=== PATIENT | male | born 2000 | race Caucasian/White ===

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

== ENCOUNTER 2022-12-15 22:46 | Emergency (ER) | payer OTHER, SELFPAY ==
[2022-12-15 22:47] VITALS: BP 155/91; PULSE 95; RESP 18; TEMP 37.1; O2SAT 98; BMI 29.6
[2022-12-15 22:59] LABS: Bacteria 0 SEEN /hpf (None Seen); Mucous, Urine 0 SEEN /hpf (<or=2+); Red Blood Cells-Urine 0 SEEN /hpf (0-5); Squamous Epithelial Cells - UA 0 SEEN /hpf (0-5); White Blood Cells 0 SEEN /hpf (0-5)
[2022-12-15 23:10] LABS: Color, Urine Yellow (Yellow); Glucose, Dipstick Normal (Normal); Ketone-Dipstick Negative (Negative); Leukocyte Esterase-Dipstick Negative /ul (Negative); Nitrite-Dipstick Negative (Negative); Occult Blood-Urine Negative /ul (Negative); Protein-Dipstick Negative (Negative); Urine Bilirubin Dipstick Negative (Negative); Urine Clarity Clear (Clear); Urine Urobilinogen Normal (Normal)
--- NOTE | 2022-12-15 23:46 | US_ITS ---
INDICATION: pain-RT TESTICLE EXAMINATION: Ultrasound US Scrotum (Contents) TECHNIQUE: Realtime ultrasound of the testicles was performed with grayscale, Color Doppler and spectral Doppler analysis. COMPARISON: Prior study dated: 06/19/2019. FINDINGS: RIGHT: TESTIS: Mildly enlarged. Right testicle measures 5.2 x 3.3 x 2.6 cm in diameter. The parenchyma of the right testicle is mildly inhomogeneous, without focal mass or wedge-shaped infarction. COLOR DOPPLER: Asymmetric increased Doppler flow throughout the right testicle as compared to the left. EPIDIDYMIS: Tiny incidental cyst. [Normal color Doppler flow pattern in the epididymis. HYDROCELE: Small. VARICOCELE: None. LEFT: TESTIS: Normal in size, measuring. 4.3 x 2.6 x 2.1 cm in diameter. Normal in size and echotexture, without focal lesion. COLOR DOPPLER: Normal Doppler flow within the left testicle. EPIDIDYMIS: Normal in size and echotexture, without focal lesion. [Normal color Doppler flow pattern in the epididymis. HYDROCELE: None. VARICOCELE: Present. OTHER: No scrotal wall thickening. US/Testicular with Arterial Flow IMPRESSION: Mildly enlarged and inhomogeneous right testicle which shows increased Doppler flow; the findings could be related to a right-sided orchitis, versus intermittent testicular torsion which has spontaneously reduced. No evidence for testicular torsion at this time, as Doppler flow is present within both testicles. Electronically Signed: Marlo Land MD at 0:22 EDT ,
--- NOTE | 2022-12-16 00:50 | EX.ED.GUMALE ---
HPI History of Present Illness Chief Complaint: Male Pain/Injury Informant: patient Narrative Narrative: 3 days gradual onset right testicular pain, no sudden onset severe pains. No urinary symptoms, no systemic symptoms. Pain radiates up into the lower abdomen a little. No injury. No history of GC or chlamydia, his significant other does not either, he has not been exposed that he knows of. PFSH PFSH no medical history Home Medications doxycycline monohydrate 100 mg capsule 100 mg PO BID #20 CAPSULES 12/16/22 [Rx Last Taken Unknown] Allergy/AdvReac Type Severity Reaction Status Date / Time No Known Allergies Allergy Verified 12/15/22 22:50 ROS ROS ED Constitutional Constitutional ED: Denies chills or fever(s) Gastrointestinal Gastrointestinal: Reports abdominal pain; Denies diarrhea, nausea or vomiting Genitourinary Genitourinary ED: Reports as per HPI and scrotal pain; Denies dysuria, hematuria or urinary frequency Musculoskeletal Musculoskeletal: Denies back pain EXAM Physical Exam Const Vital Signs: 12/15/22 22:47 Temperature 98.7 F Temperature Source Temporal Pulse Rate 95 Respiratory Rate 18 Blood Pressure 155/91 H Blood Pressure Mean 112 Pulse Ox 98 Oxygen Delivery Method Room Air Positive well nourished and well developed General Appearance ED: well developed and NAD Cardio Rate: Negative for tachycardic GI non-tender and non-distended Inspection: Negative for abdominal distention Auscultation: normoactive bowel sounds Palpation: soft Narrative: Mild tenderness throughout right testicle. No objective hemiscrotal asymmetry/edema. Not able to isolate to the epididymis. No blue dot sign. No erythema. Normal penis, no inguinal lymphadenopathy or rash/lesion. Left hemiscrotum nontender. No palpable abnormal mass. Cremasteric intact. Back/Spine no CVA tenderness MDM MDM MDM Narrative Medical decision making narrative: Urinalysis negative, ultrasound obtained, I reviewed the images and report I agree with it, basically consistent with orchitis. I think it is less likely clinically indicative of intermittent torsion given the history which is much more consistent with orchitis. Placed on doxycycline and sent GC and Chlamydia those are pending, if he does not have resolution of symptoms he should follow-up with urology he is comfortable with that plan and taking ibuprofen as needed for the pain which was given here. Lab Data Attestation: I reviewed the patient's lab results. Labs: Laboratory Results - last 24 hr 12/15/22 21:55 Urine Color Yellow Urine Clarity Clear Urine pH 7.0 Ur Specific [place] 1.010 Urine Protein Negative Urine Glucose (UA) Normal Urine Ketones Negative Urine Occult Blood Negative Urine Nitrite Negative Urine Bilirubin Negative Urine Urobilinogen Normal Ur Leukocyte Esterase Negative Urine RBC 0 SEEN Urine WBC 0 SEEN Ur Squamous Epith Cells 0 SEEN Urine Bacteria 0 SEEN Urine Mucus 0 SEEN Radiography Diagnostic Testing: Clinical Impression(s) from Imaging Studies Testicular Ultrasound 12/15/22 23:46 IMPRESSION: Mildly enlarged and inhomogeneous right testicle which shows increased Doppler flow; the findings could be related to a right-sided orchitis, versus intermittent testicular torsion which has spontaneously reduced. No evidence for testicular torsion at this time, as Doppler flow is present within both testicles. Electronically Signed: Marlo Land MD at 0:22 EDT , Discharge Plan Triage Chief Complaint: Male Pain/Injury ED Provider: Hernán Whaltey Dx/Rx/DC Orders Clinical Impression: Orchitis, right Instructions: ED Orchitis Prescriptions: New doxycycline monohydrate 100 mg capsule 100 mg PO BID Qty: 20 0RF Primary Care Provider: El Ch Referrals: El Ch MD [Primary Care Provider] - Mayito Covington MD [Med Staff - Active Staff] - 1 Week if not improving Disposition Disposition: Home, Self Care
[2022-12-16] MEDS: Ibuprofen 600 MG Tablet PO (01:07)
[2022-12-16] MEDS: Doxycycline 100 MG CAPSULE PO (01:08)
[2022-12-16 01:11] VITALS: PULSE 80; RESP 16
== END 2022-12-16 01:12 | disposition home or self-care (01) ==
PROVIDERS: Emergency Provider Emergency Medicine; PCP Family Medicine; Visit Provider Emergency Medicine
DX: N45.2 Orchitis (principal); R10.30 Lower abdominal pain, unspecified; N50.811 Right testicular pain
CPT/HCPCS: 76870; 81001; 87491; 87591; 93976; 99283

== ENCOUNTER → 2023-06-16 | Outpatient (CLI) | payer BC, SELFPAY ==
--- OUTSIDE RECORDS SUMMARY | 2023-06-16 06:55 | XMS RPT_ITS | CCD ---
Author Name Unknown Address [address] [place] [address] [address] [place] [address] Organization [facility] Care Team Providers Care Manager Gas Name Role Phone ZULLY STERN Unavaila ble REFERRED, SELF Unavailable Unavailable ZULLY STERN Unavailable Unavaila ble Unavailable Primary Care Provider Unavailabl e Medications Completed/Discontinued Medications Medication Drug Class(es) Dates Sig (Normalized) Sig (Original) brompheniramine maleate 0.4 mg/ml / dextromethorphan hydrobromide 2 mg/ml / pseudoephedrine hydrochloride 6 mg/ml oral solution (1 source) alpha-Adrenergic Agonist, Uncompetitive H-pknhjr-W-aspartat e Receptor Antagonist, Sigma-1 Agonist Start: 04-05-2022 take 10 mL by mouth four times daily as needed Brompheniramine -Pseudoeph-DM (BROMFED DM) 2-30-10 mg/5 mL syrup Indications: Viral URI with cough , Acute otalgia, bilateral Take 10 mL by mouth four times daily as needed. 118 mL 0 04/05/2022 Active Problems Problem Classification Problem Date Documented Da te Episodic/Chronic Other ear and sense organ disorders (1 source) Pain of ear structure; Translations: [Otalgia, bilateral] Episodic Other upper respiratory infections (1 source) Viral upper respiratory tract infection; Translations: [Acute upper respiratory infection, unspecified] Episodic Results Test Name Value Interpretation Reference Range Facil ity Vital Signs Date Time Vital Sign Value Performing Clinician Siddharthi litdrake 04-05-2022 15:26-0500 Body temperature 98.2 [degF] Christie Aguayo APRN.[employer] Work Phone: [facility] 04-05-2022 15:26-0500 Body weight 102.97 kg Christie Aguayo 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[employer] Work Phone: [facility] 04-05-2022 15:26-0500 Diastolic blood pressure 68 mm[Hg] Christie Aguayo APRN.[employer] Work Phone: [facility] 04-05-2022 15:26-0500 Heart rate 73 /min Christie Aguayo APRN.[employer] Work Phone: [facility] 04-05-2022 15:26-0500 SaO2% (BldA) [Mass fraction] 97 % Christie Aguayo APRN.[employer] Work Phone: [facility] 04-05-2022 15:26-0500 Systolic blood pressure 131 mm[Hg] Christie Aguayo APRN.[employer] Work Phone: [facility] Encounters Encounter Date Encounter Type Care Provider Facility Start: 04-05-2022 End: 04-05-2022 ambulatory Facility:[facility] Start: 04-05-2022 End: 04-05-2022 Patient encounter procedure Christie Aguayo APRN.JOSE ELIAS Work Phone: [facility] Plan of Treatment Date Care Activity Detail Author Start: 04-10-2022 DEPRESSION ASSESSMENT DEPRESSION ASS ESSMENT [facility] Start: 12-09-2021 Influenza vaccination INFLUENZA (#1) [facility] Start: 02-22-2021 COVID-19 VACCINE (3 - Booster for Pfizer series) COVID-19 VACCINE (3 - Booster for Pfizer series) [facility] Start: 01-10-2019 Urine microalbumin profile DTAP,TDAP ,TD (1 - Tdap) [facility] Start: 01-10-2018 HEPATITIS C SCREENING HEPATITIS C SC RUPERT [facility] Start: 01-10-2018 HIV SCREENING HIV SCREENING [facility] Start: 01-10-2014 PEDS TO ADULT TRANSI TION ANNUAL ASSESSMENT PEDS TO ADULT TRANSITION ANNUAL ASSESSMENT [facility] Start: 2012 PEDS TO ADULT TRANSI TION INITIAL DISCUSSION PEDS TO ADULT TRANSITION INITIAL DISCUSSION [facility] Start: 01-10-2011 HPV VACCINE (1 - Mal e 2-dose series) HPV VACCINE (1 - Male 2-dose series) [facility] Start: 01-10-2010 MENINGOCOCCAL B: 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 based on risk (1 of 2 - Risk Bexsero 2-dose series) MENINGOCOCCAL B: Consider based on risk (1 of 2 - Risk Bexsero 2-dose series) [facility] Start: 2000 HEPATITIS B (1 of 3 - 3-dose series) HEPATITIS B (1 of 3 - 3-dose series) [facility] Payers Date Payer Category Payer Unknown [id number] 2000 Unknown MMO MMO [employer] [id number] 2000-Present [phone] [address] [place] [address] PPO [id number] Unknown [id number] Social History Date Type Detail Facility Tobacco smoking stat [facility] Tobacco smoking consumption unknown [facility] Start: 2000 Sex Assigned At Not on file [facility] Progress note 04-05-2022 Note Date & Type Note Facility 04-05-2022 Note HNO ID: [id number] Author: Christie Aguayo APRN.[employer] Service: ? Author Type: Nurse Practitioner Type: Progress Notes Filed: 04/05/2022 3:46 PM Note Text: This note was created using [employer]zwerker[employer]. Subjective Ronni Contreras is a 22 year old male. HPI by patient: Ronni Contreras is a 22 year old presenting to the office with the complaint of viral symptoms. CC: (Sxs Monday runny nose cough, a little bit of a sore throat and ear issues.) Started approximately 2-3 days prior. Associated symptoms include bilateral ear pain, sore throat, cough, and congestion. Denies fevers, chills, body aches, gi symptoms, headache, shortness of breath. Vaccinated for influenza: none. Covid Immunization Dates Overdue - COVID-19 VACCINE (3 - Booster for Pfizer series) Overdue since 02/22/2021 12/28/2020 Outside Immunization: COVID-19, mRNA, LNP-S, PF, 30 mcg/0.3 mL dose 12/07/2020 Outside Immunization: COVID-19, mRNA, LNP-S, PF, 30 mcg/0.3 mL dose Flu/RSV contacts: none. Strep contacts: none. Sick contacts: yes. Covid + contacts: none. Travel in the last 14 days: none. Smoking history/second hand smoke: none. OTC dayquil, nyquil. No antibiotic use in the last 60 days. ALLERGIES No Known Allergies No family history on file. Active Ambulatory Problems No Active Ambulatory Problems Resolved Ambulatory Problems No Resolved Ambulatory Problems No Additional Past Medical History Review of Systems Constitutional: Negative for chills, fatigue and fever. HENT: Positive for congestion and ear pain. Negative for sore throat. Eyes: Negative. Respiratory: Positive for cough. Negative for shortness of breath. Cardiovascular: Negative. Gastrointestinal: Negative. Endocrine: Negative. Genitourinary: Negative. Musculoskeletal: Negative. Skin: Negative. Neurological: Positive for headaches (from cough). Objective BP 131/68 Pulse 73 Temp 36.8 ?C (98.2 ?F) Wt 103 kg (227 lb) SpO2 97% Physical Exam Vitals reviewed. Constitutional: General: He is awake. He is not in acute distress. Appearance: He is not ill-appearing, toxic-appearing or diaphoretic. HENT: Head: Normocephalic and atraumatic. Right Ear: Tympanic membrane, ear canal and external ear normal. Left Ear: Tympanic membrane, ear canal and external ear normal. Nose: Nose normal. Right Sinus: No maxillary sinus tenderness or frontal sinus tenderness. Left Sinus: No maxillary sinus tenderness or frontal sinus tenderness. Mouth/Throat: Mouth: Mucous membranes are moist. Pharynx: Oropharynx is clear. No pharyngeal swelling, oropharyngeal exudate or posterior oropharyngeal erythema. Cardiovascular: Rate and Rhythm: Normal rate and regular rhythm. Pulmonary: Effort: Pulmonary effort is normal. Breath sounds: Normal breath sounds. Lymphadenopathy: Head: Right side of head: No submandibular or tonsillar adenopathy. Left side of head: No submandibular or tonsillar adenopathy. Cervical: No cervical adenopathy. Neurological: Mental Status: He is alert. Psychiatric: Behavior: Behavior is cooperative. Centor Score for strep testing: Age: 3-13- +1 15-44- 0 >45- -1 Exudate/swelling tonsils: No-0, yes-+1 Tender/swollen anterior cervical lymph: No-0, yes- +1 Temp > 100.4F, 38C: No-0, yes-+1 Cough: yes-0, no-+1 Score: Greater than or equal to 4- test/treat empirically 3- test/treat empirically 2- test 1- No test 0- No test Assessment and Plan (J06.9) Viral URI with cough (primary encounter diagnosis) Plan: Opozzcjtacpwspy-Bzgeswxvr-EV (BROMFED DM) 2-30-10 mg/5 mL syrup (H92.03) Acute otalgia, bilateral Plan: Kpatmrlnseojvgp-Povkmkncg-OG (BROMFED DM) 2-30-10 mg/5 mL syrup, predniSONE (DELTASONE) 20 mg tablet Education on viral vs bacterial infections. Most viral infections will last 10 days, sometimes 14. It is possible to have back to back viral infections. An antibiotic will not treat a virus. Declines viral testing. Viral symptoms for about 2-3 days, recommending supportive care: -Prednisone with food to help with inflammation and eustachian tube issues. -Drink lots of fluids and get plenty of rest. -Vaporizers, cool mist humidifiers, warm showers, and warm fluids help open respiratory and sinus passages. Clean humidifiers daily. -OTC tylenol as directed on the bottle. -Saline nasal spray as needed. Flonase twice daily can help reduce inflammation through the sinus cavities. -Bromfed for cough/congestion. -Cough/deep breathing education, promote clearing of the airways and good lung expansion. -Make follow up with primary care for monitoring and resolution in symptoms. -Signs that warrant an ER evaluation: Sudden change/worsening in condition, lethargy, signs of dehydration, fever greater than 102 F that is not responding to Tylenol or ibuprofen (Motrin, Advil), drooling, difficulty swallowing, difficulty breathing, shortness of breath, chest pain, evide (more content not included)... [facility] History of Present illness Narrative 04-05-2022 Christie Aguayo APRN.[employer] - 04/05/2022 3:29 PM EST Note Date & Type Note Facility 04-05-2022 History of Presen t illness Narrative This note was created using NoteWriter. Subjective Ronni Contreras is a 22 year old male. HPI by patient: Ronni Contreras is a 22 year old presenting to the office with the complaint of viral symptoms. CC: (Sxs Monday runny nose cough, a little bit of a sore throat and ear issues.) Started approximately 2-3 days prior. Associated symptoms include bilateral ear pain, sore throat, cough, and congestion. Denies fevers, chills, body aches, gi symptoms, headache, shortness of breath. Vaccinated for influenza: none. Covid Immunization Dates Overdue - COVID-19 VACCINE (3 - Booster for Pfizer series) Overdue since 02/22/2021 12/28/2020 Outside Immunization: COVID-19, mRNA, LNP-S, PF, 30 mcg/0.3 mL dose 12/07/2020 Outside Immunization: COVID-19, mRNA, LNP-S, PF, 30 mcg/0.3 mL dose Flu/RSV contacts: none. Strep contacts: none. Sick contacts: yes. Covid + contacts: none. Travel in the last 14 days: none. Smoking history/second hand smoke: none. OTC dayquil, nyquil. No antibiotic use in the last 60 days. ALLERGIES No Known Allergies No family history on file. Active Ambulatory Problems No Active Ambulatory Problems Resolved Ambulatory Problems No Resolved Ambulatory Problems No Additional Past Medical History Review of Systems Constitutional: Negative for chills, fatigue and fever. HENT: Positive for congestion and ear pain. Negative for sore throat. Eyes: Negative. Respiratory: Positive for cough. Negative for shortness of breath. Cardiovascular: Negative. Gastrointestinal: Negative. Endocrine: Negative. Genitourinary: Negative. Musculoskeletal: Negative. Skin: Negative. Neurological: Positive for headaches (from cough). Objective BP 131/68 Pulse 73 Temp 36.8 C (98.2 F) Wt 103 kg (227 lb) SpO2 97% Physical Exam Vitals reviewed. Constitutional: General: He is awake. He is not in acute distress. Appearance: He is not ill-appearing, toxic-appearing or diaphoretic. HENT: Head: Normocephalic and atraumatic. Right Ear: Tympanic membrane, ear canal and external ear normal. Left Ear: Tympanic membrane, ear canal and external ear normal. Nose: Nose normal. Right Sinus: No maxillary sinus tenderness or frontal sinus tenderness. Left Sinus: No maxillary sinus tenderness or frontal sinus tenderness. Mouth/Throat: Mouth: Mucous membranes are moist. Pharynx: Oropharynx is clear. No pharyngeal swelling, oropharyngeal exudate or posterior oropharyngeal erythema. Cardiovascular: Rate and Rhythm: Normal rate and regular rhythm. Pulmonary: Effort: Pulmonary effort is normal. Breath sounds: Normal breath sounds. Lymphadenopathy: Head: Right side of head: No submandibular or tonsillar adenopathy. Left side of head: No submandibular or tonsillar adenopathy. Cervical: No cervical adenopathy. Neurological: Mental Status: He is alert. Psychiatric: Behavior: Behavior is cooperative. Centor Score for strep testing: Age: 3-13- +1 15-44- 0 >45- -1 Exudate/swelling tonsils: No-0, yes-+1 Tender/swollen anterior cervical lymph: No-0, yes- +1 Temp > 100.4F, 38C: No-0, yes-+1 Cough: yes-0, no-+1 Score: Greater than or equal to 4- test/treat empirically 3- test/treat empirically 2- test 1- No test 0- No test Assessment and Plan (J06.9) Viral URI with cough (primary encounter diagnosis) Plan: Rwdwhjggxxagrcs-Xvolalaxo-ZZ (BROMFED DM) 2-30-10 mg/5 mL syrup (H92.03) Acute otalgia, bilateral Plan: Wdzkmcgepqgmrgy-Acvdjyvim-AD (BROMFED DM) 2-30-10 mg/5 mL syrup, predniSONE (DELTASONE) 20 mg tablet Education on viral vs bacterial infections. Most viral infections will last 10 days, sometimes 14. It is possible to have back to back viral infections. An antibiotic will not treat a virus. Declines viral testing. Viral symptoms for about 2-3 days, recommending supportive care: -Prednisone with food to help with inflammation and eustachian tube issues. -Drink lots of fluids and get plenty of rest. -Vaporizers, cool mist humidifiers, warm showers, and warm fluids help open respiratory and sinus passages. Clean humidifiers daily. -OTC tylenol as directed on the bottle. -Saline nasal spray as needed. Flonase twice daily can help reduce inflammation through the sinus cavities. -Bromfed for cough/congestion. -Cough/deep breathing education, promote clearing of the airways and good lung expansion. -Make follow up with primary care for monitoring and resolution in symptoms. -Signs that warrant an ER evaluation: Sudden change/worsening in condition, lethargy, signs of dehydration, fever greater than 102 F that is not responding to Tylenol or ibuprofen (Motrin, Advil), drooling, difficulty swallowing, difficulty breathing, shortness of breath, chest pain, evidence of airway compromise (tripod position, neck extension, retractions), seizures, changes in mental status, or other concerns. The patient will pursue further outpatient evaluation with the primary care physician or another Urgent Care/Express Care as outlined in the after visit summary. The patient is agreeable to this plan of care and follow-up instructions have been explained in detail. The patient has received these instructions in written format and have expressed an understanding of the after visit summary. Medical Decision Making: Level: 3 - Low I spent a total of 20 minutes on the date of the service which included preparing to see the patient, [id number] patient care, completing clinical documentation, obtaining and/or reviewing separately obtained history, performing a medically appropriate examination, counseling and educating the patient/family/caregiver, and ordering medications, tests, or procedures. This patient encounter involved the screening or treatment of novel coronavirus infection (COVID-19). documented in this encounter [facility] Instructions 04-05-2022 Patient Instructions Note Date & Type Note Facility 04-05-2022 Instructions Christie Aguayo APRN.CNP - 04/05/2022 3:29 PM EST (J06.9) Viral URI with cough (primary encounter diagnosis) Plan: Ybkuvocikzzjome-Kanaiuvxw-IK (BROMFED DM) 2-30-10 mg/5 mL syrup (H92.03) Acute otalgia, bilateral Plan: Nzoplhqkbalgwmv-Rfevhbrxj-HI (BROMFED DM) 2-30-10 mg/5 mL syrup, predniSONE (DELTASONE) 20 mg tablet Education on viral vs bacterial infections. Most viral infections will last 10 days, sometimes 14. It is possible to have back to back viral infections. An antibiotic will not treat a virus. Declines viral testing. Viral symptoms for about 2-3 days, recommending supportive care: -Prednisone with food to help with inflammation and eustachian tube issues. -Drink lots of fluids and get plenty of rest. -Vaporizers, cool mist humidifiers, warm showers, and warm fluids help open respiratory and sinus passages. Clean humidifiers daily. -OTC tylenol as directed on the bottle. -Saline nasal spray as needed. Flonase twice daily can help reduce inflammation through the sinus cavities. -Bromfed for cough/congestion. -Cough/deep breathing education, promote clearing of the airways and good lung expansion. -Make follow up with primary care for monitoring and resolution in symptoms. -Signs that warrant an ER evaluation: Sudden change/worsening in condition, lethargy, signs of dehydration, fever greater than 102 F that is not responding to Tylenol or ibuprofen (Motrin, Advil), drooling, difficulty swallowing, difficulty breathing, shortness of breath, chest pain, evidence of airway compromise (tripod position, neck extension, retractions), seizures, changes in mental status, or other concerns. Clear. You re in the normal range. Straight mucus is mostly water, with proteins, antibodies and dissolved salts. Your nasal tissues produce it 24/7. Most of it flows down the back of your throat to be dissolved in the stomach. White. You re congested. Swollen, inflamed tissues in your nose are slowing the flow of mucus, causing it to lose moisture and become thick and cloudy. This can be a sign of a nasal infection or cold. Yellow. Your cold or infection is progressing. Infection-fighting cells might be rushing to the site of the microbial infection. White blood cells are among them as well. Once exhausted, they re carried off on the mucosal tide, lending it a yellowish tinge. Colds inevitably last 10 to 14 days. [place] down and wait it out. Green. Your immune system is really fighting back. The mucus is thick with white cells and other wreckage from the caban. If you re still sick after about 12 days, you may want to see a doctor. It could be sinusitis, a bacterial infection. If you re feverish or nauseated, see a doctor soon. Bangs or red. This is blood. Your nasal tissue in the nose has somehow become broken -- perhaps because it s dry, irritated or suffered some kind of impact. Brown. This shade could be blood, but likely it s something inhaled, like dirt, snuff or paprika. documented in this encounter [facility] Evaluation note Note Date & Type Note Facility documented in this encounter [facility] Summary Purpose Family History No Family History Records FoundNo Family History Records Found Advance Directives No Advanced Directives Records FoundNo Advanced Directives Records Found Additional Source Comments (unrecognized sect ion and content) No Status Records FoundNo Status Records Found INFORMATION SOURCE (unrecogn ized section and content) DATE CREATED AUTHOR AUTHOR'S ORGANIZ ATION 04/06/2022 [facility] Source Comments (unrecognize d section and content) In the event this informatio n is protected by the Federal Confidentiality of Alcohol and Drug Abuse Patient Records regulations: The Federal rules restrict any use of the information to criminally investigate or prosecute any alcohol or drug abuse patient.[facility] Reason for Visit (unrecogniz ed section and content) FOR RECORDS PERTAINING TO PATIENTS WHO ARE OR HAVE BEEN ENROLLED IN A CHEMICAL DEPENDENCY/SUBSTANCEABUSE PROGRAM, SOME INFORMATION MAY BE OMITTED. This clinical summary was aggregated from multiple sources. Caution should be exercised in using it in the provision of clinical care. This summary normalizes information from multiple sources, and as a consequence, information in this document may materially change the coding, format and clinical context of patient data. In addition, data may be omitted in some cases. CLINICAL DECISIONS SHOULD BE BASED ON THE PRIMARY CLINICAL RECORDS. [facility]. provides no warranty or guarantee of the accuracy or completeness of information in this document.
[2023-06-16 07:11] LABS: Hemoglobin 15.6 g/dL (13.0-16.5); Mean Corp Hgb Conc 32.5 g/dL (32-36); Mean Corpuscular Hgb 28.5 pg (27.0-32.0); Mean Corpuscular Volume 87.8 fL (80-94); Mean Platelet Vol. 10.4 fl (6.2-12.0); Platelet Count 239 K/mm3 (150-450); RBC Distribution Width CV 12.4 % (11.6-14.6); RBC Distribution Width SD 40.1 fl (35.1-43.9); Red Blood Count 5.47 M/mm3 (4.6-6.2); White Blood Count 5.3 K/mm3 (4.4-11.0)
[2023-06-16 08:00] LABS: Anion Gap 7 (5-15); BUN 16 mg/dL (7-18); BUN/Creat Ratio 14.2 RATIO (10-20); Calcium,Total 9.3 mg/dL (8.5-10.1); Chloride 107 mmol/L (98-107); Cholesterol 162 mg/dL (200); Creatinine, Serum 1.13 mg/dL (0.70-1.30); EST Glomerular Filtration Rate 85 mL/min (>60); Est Glom Filt Rate - Afr Amer 103 mL/min (>60); Glucose 107 mg/dL (74-106); High Density Lipoprotein 48 mg/dL; Potassium 4.2 mmol/L (3.5-5.1); Sodium Level 140 mmol/L (136-145); Triglycerides 59 mg/dL; Very Low Density Lipoprotein 12 mg/dL (5-40)
[2023-06-16 08:05] LABS: Vitamin D,25 Hydroxy 30.9 ng/mL
== END | disposition home or self-care (01) ==
LOC: LAB 06:52
PROVIDERS: PCP Family Medicine; Referring Provider Family Medicine; Visit Provider Family Medicine
DX: Z13.220 Encounter for screening for lipoid disorders (principal); R53.83 Other fatigue; Z13.1 Encounter for screening for diabetes mellitus; R68.82 Decreased libido
CPT/HCPCS: 36415; 80048; 80061; 82306; 84403; 85027